=== PATIENT | female | born 1955 | race Caucasian/White ===

== ENCOUNTER 2022-12-05 11:43 | Inpatient (IN) | payer OTHER ==
[~2022-12-05] VITALS: Ht 162.6 cm; Wt 99.8 kg
[2022-12-05] MEDS ORDERED: ADVIL ALLERGY-1 EACH PO (12:01)
[2022-12-05] MEDS ORDERED: PROTONIX20 MG PO (12:08)
[2022-12-05] MEDS ORDERED: XYZAL5 MG PO (12:08)
[2022-12-05] MEDS ORDERED: AVAPRO150 MG PO (12:09)
[2022-12-05] MEDS ORDERED: CARAFATE1 GM PO ×2 (12:09→12:10)
[2022-12-05] MEDS ORDERED: FML FORTE5 ML OTIC (12:09)
[2022-12-05] MEDS ORDERED: SINGULAIR10 MG PO (12:10)
[2022-12-05] MEDS ORDERED: TRELEGY ELLIPT1 EACH IH (12:10)
[2022-12-05] MEDS ORDERED: BUDESONIDE0.5 MG/2 M (12:10)
--- NOTE | 2022-12-05 12:14 | NUR ---
SE RECIBE PTE ALERTA Y ORIENTADA X3 JUNTO A ESPOSO. LA MISMA REFIERE SENTIRSE FATIGADA, PTE PADECE DE ASMA. PRESENTA TOS PRODUCTIVA CON SECRECIONES. SE SEGUNDO EN FABRIZIO DE ESPERA PARA SEGUIMIENTO.
--- NOTE | 2022-12-05 12:56 | NUR ---
SE EJECUTAN TODAS LAS ORDENES MEDICAS BAJO MEDIDAS ASEPTICAS, PACIENTE UBICADA EN CAMA #6 PENDIENTE A RESULTADOS DE LABORATORIO Y RE EVALUACION MEDICA.
--- NOTE | 2022-12-05 14:43 | NUR ---
SE NOTIFICAN TERAPIAS A MR HERNANDEZ A LAS 243
--- NOTE | 2022-12-05 15:16 | NUR ---
SE RECIBE PACIENTE FEMENINA ALERTA Y ORIENTADA X3, EN GAYATRI #06 CON BARRANDAS ELEVADAS. AREA DE VENOPUNCION EN BRAZO ARIAN CON ANGIO #20 S/L PATENTE MONICA DE EDEMA Y ENROJECIMIENTO. PENDIENTE TERAPIA RESPIRATORIA. SE LE RIANA EN TODO MOMENTO PRIVACIDAD Y SEGURIADAD.
== END 2022-12-16 14:36 | disposition home or self-care (01) | DRG 203 ==
LOC: ER 11:43 → MEDJ 18:16 → MEDI 12-06 09:46
PROVIDERS: ADMIT Internal Medicine; ATTEND Internal Medicine
PROC: BB24ZZZ Computerized Tomography (CT Scan) of Bilateral Lungs (ICD-10-PCS; principal; 2022-12-05)
PROC: 3E0F7GC Introduction of Other Therapeutic Substance into Respiratory Tract, Via Natural or Artificial Opening (ICD-10-PCS; 2022-12-05)
PROC: 3E0F7SF Introduction of Other Gas into Respiratory Tract, Via Natural or Artificial Opening (ICD-10-PCS; 2022-12-05)
PROC: B246ZZZ Ultrasonography of Right and Left Heart (ICD-10-PCS; 2022-12-08)
PROC: BW2FZZZ Computerized Tomography (CT Scan) of Neck (ICD-10-PCS; 2022-12-08)
PROC: BD11YZZ Fluoroscopy of Esophagus using Other Contrast (ICD-10-PCS; 2022-12-08)
DX: J45.51 Severe persistent asthma with (acute) exacerbation (principal); J20.9 Acute bronchitis, unspecified; E11.65 Type 2 diabetes mellitus with hyperglycemia; T38.0X5A Adverse effect of glucocorticoids and synthetic analogues, initial encounter; R00.0 Tachycardia, unspecified; T48.6X5A Adverse effect of antiasthmatics, initial encounter; R06.01 Orthopnea; R13.19 Other dysphagia; I10 Essential (primary) hypertension; Z87.891 Personal history of nicotine dependence; Z79.4 Long term (current) use of insulin; Y92.230 Patient room in hospital as the place of occurrence of the external cause

== ENCOUNTER 2023-01-04 00:41 | Emergency (ER) | payer OTHER ==
[~2023-01-04] VITALS: Ht 162.6 cm; Wt 98.4 kg
[~2023-01-04 00:41] MED LIST: ADVIL ALLERGY-1 EACH PO; AVAPRO150 MG PO; BUDESONIDE0.5 MG/2 M; CARAFATE1 GM PO; FML FORTE5 ML OTIC; PROTONIX20 MG PO; SINGULAIR10 MG PO; TRELEGY ELLIPT1 EACH IH; XYZAL5 MG PO
== END 2023-01-04 03:23 | disposition home or self-care (01) ==
LOC: ER 00:41
DX: A03.8 Other shigellosis (principal); I10 Essential (primary) hypertension; E11.9 Type 2 diabetes mellitus without complications; Z88.2 Allergy status to sulfonamides; Z88.0 Allergy status to penicillin; Z91.013 Allergy to seafood; Z87.09 Personal history of other diseases of the respiratory system

== ENCOUNTER 2023-03-10 07:42 | Outpatient (CLI) | payer OTHER | END 2023-03-10 07:44 | disposition home or self-care (01) | LOC: RX STUDY 07:42 | PROVIDERS: ATTEND Urology | DX: N81.10 Cystocele, unspecified (principal); N39.46 Mixed incontinence | CPT/HCPCS: 74455; A9698 ==

== ENCOUNTER 2023-04-08 02:58 | Inpatient (IN) | payer OTHER ==
[~2023-04-08] VITALS: Ht 162.6 cm; Wt 95.3 kg
[2023-04-08] MEDS ORDERED: SIMVASTATIN40 MG PO (03:27)
[2023-04-11] MEDS ORDERED: LANSOPRAZOLE30 MG (13:25)
[2023-04-11] MEDS ORDERED: ELMIRON100 MG (13:25)
[2023-04-11] MEDS ORDERED: URECHOLINE10 MG (13:25)
== END 2023-04-11 21:10 | disposition home or self-care (01) | DRG 177 ==
LOC: ER 02:58 → MEDJ 17:20 → SEC-K 18:05 → MEDJ 23:57
PROVIDERS: ADMIT Internal Medicine; ATTEND Internal Medicine
PROC: 3E0F7GC Introduction of Other Therapeutic Substance into Respiratory Tract, Via Natural or Artificial Opening (ICD-10-PCS; 2023-04-08)
PROC: 8E0ZXY6 Isolation (ICD-10-PCS; principal; 2023-04-09)
PROC: BB24ZZZ Computerized Tomography (CT Scan) of Bilateral Lungs (ICD-10-PCS; 2023-04-09)
DX: U07.1 COVID-19 (principal); J12.82 Pneumonia due to coronavirus disease 2019; J44.1 Chronic obstructive pulmonary disease with (acute) exacerbation; J10.1 Influenza due to other identified influenza virus with other respiratory manifestations; G47.33 Obstructive sleep apnea (adult) (pediatric); F17.200 Nicotine dependence, unspecified, uncomplicated

== ENCOUNTER 2025-01-18 12:46 | Emergency (ER) | payer OTHER ==
[~2025-01-18] VITALS: Ht 162.6 cm; Wt 95.3 kg
[~2025-01-18 12:46] MED LIST changes: +ELMIRON100 MG; +LANSOPRAZOLE30 MG; +SIMVASTATIN40 MG PO; +URECHOLINE10 MG
[2025-01-18] MEDS ORDERED: REZDIFFRA (13:08)
[2025-01-18 17:05] LABS: HEMATOCRIT 36.4 % (36.0-45.00); HEMOGLOBIN 11.9 g/dL (12.0-15.00); MEAN CELL VOLUME 87.2 fL (80.00-100.00); MEAN CORPUSCULAR HEMOGLOBIN 28.5 pg (27.00-32.0); MEAN CORPUSCULAR HGB CONC 32.7 g/dl (32.0-36.0); PLATELET COUNT 229 K/uL (150-450); RED BLOOD COUNT 4.17 M/uL (4.00-6.00); RED CELL DISTRIBUTION WIDTH 15.4 % (11.5-14.5)
[2025-01-18 17:14] LABS: ERYTHROCYTE SEDIMENTATION RATE 63 mm/hr
[2025-01-18 17:27] LABS: ALBUMIN 3.3 gm/dL (3.4-5.0); BILIRUBIN TOTAL 0.32 mg/dL (0.3-1.2); CALCIUM 8.9 mg/dL (8.5-10.1); CREATININE SERUM 0.62 mg/dL (0.55-1.02); D DIMER 1.66 MG/L; GFR 96.01; GLOBULINA 3.4 G/DL (2.4-3.5); INR 0.98; PARTIAL THROMBOPLASTIN TIME 24.5 SECONDS (22.0-34.0); POTASSIUM 3.99 mEq/L (3.5-5.1); PROTHROMBIN TIME 10.7 SECONDS (9.0-11.5); TOTAL PROTEIN 6.7 gm/dL (6.4-8.2)
[2025-01-18 17:35] LABS: URINE APPEARANCE Clear; URINE BILIRRUBIN Negative (NEGATIVE); URINE BLOOD Negative; URINE COLOR Yellow; URINE GLUCOSE Negative (NEGATIVE); URINE KETONE Negative (NEGATIVE); URINE LEUKOCYTE Negative; URINE NITRATE Negative; URINE PROTEIN Negative (NEGATIVE)
[2025-01-18 17:39] LABS: URINE BACTERIA 13.4 uL (0.0-1933); URINE RBC 4.7 uL (0.0-20.8); URINE WBC 4.1 uL (0.0-23.2)
[2025-01-18 17:42] LABS: URINE EPITHELIAL CELLS 0.9 uL (0.0-38.8)
[2025-01-18] MEDS ORDERED: ENOXAPARIN SODIUM 80 MG/0.8 ML SYRINGE SUBCUTANEO ONE ×2 (20:00→20:20)
[2025-01-18] MEDS ORDERED: BACTRIM DS TAB1 EACH PO (20:12)
[2025-01-18] MEDS ORDERED: CEPHALEXIN500 M1 PO (20:28)
== END 2025-01-18 20:48 ==
LOC: ER 12:47
PROVIDERS: General Practice
DX: M79.601 Pain in right arm (principal); I10 Essential (primary) hypertension; Z88.3 Allergy status to other anti-infective agents; Z88.6 Allergy status to analgesic agent; Z88.8 Allergy status to other drugs, medicaments and biological substances